=== PATIENT | female | born 2000 | race Two or more races ===

== ENCOUNTER 2022-03-04 19:05 | Emergency (ER) | payer SELFPAY ==
[~2022-03-04] VITALS: Ht 162.6 cm; Wt 57.0 kg
[2022-03-04] MEDS ORDERED: SODIUM CHLORIDE 0.9% 1,000 ML IV ONE (20:45)
[2022-03-04 21:09] LABS: CLARITY URINE CLOUDY (CLEAR); COLOR URINE YELLOW (YELLOW); KETONES URINE TRACE (NEGATIVE); LEUKOCYTE ESTERASE URINE 1+ (NEGATIVE); NITRITE URINE NEGATIVE (NEGATIVE); OCCULT BLOOD URINE NEGATIVE (NEGATIVE); PH URINE 6.5 (4.5-8.0); PROTEIN URINE 1+ (NEGATIVE); SPECIFIC GRAVITY URINE 1.026 (1.005-1.030)
[2022-03-04 21:19] LABS: *AMPHETAMINES SCREEN URINE NEGATIVE (NEGATIVE); *BARBITURATES SCREEN URINE NEGATIVE (NEGATIVE); *BENZODIAZEPINES SCREEN URINE NEGATIVE (NEGATIVE); *COCAINE SCREEN URINE NEGATIVE (NEGATIVE); METHADONE URINE SCREEN NEGATIVE (NEGATIVE); OPIATES URINE SCREEN NEGATIVE (NEGATIVE); PHENCYCLIDINE URINE SCREEN NEGATIVE (NEGATIVE)
[2022-03-04 21:23] LABS: CANNABINOID URINE SCREEN PRESUMTIVE POSITIVE (NEGATIVE)
[2022-03-04 21:26] LABS: HEMOGLOBIN. 12.5 g/dL (12.0-16.0); MEAN CORPUSCULAR HEMOGLOBIN 26.4 pg (28.0-32.0); MEAN CORPUSCULAR VOLUME 82.2 fL (81.0-99.0); PLATELET 306 x1000/uL (130-400); RED BLOOD CELL COUNT 4.74 mill/uL (4.2-5.4); RED CELL DISTRIBUTION WIDTH 15.7 % (11.6-14.6)
[2022-03-04 21:30] LABS: CHLORIDE 109 mEq/L (98-107)
[2022-03-04 21:37] LABS: HCG SCREEN NEGATIVE
[2022-03-04 21:47] LABS: ETHANOL BLOOD < 10 mg/dL
[2022-03-04 21:50] LABS: PLATELET ESTIMATE NORMAL
[2022-03-04] MEDS ORDERED: CEFTRIAXONE 1 G PREMIX 50 ML IV ONE (23:15)
[2022-03-05] MEDS ORDERED: CEFTRIAXONE 1 G PREMIX 50 ML IV NR (00:15)
[2022-03-05] MEDS ORDERED: LORAZEPAM 1MG TABLET PO ONE (05:00)
[2022-03-05] MEDS ORDERED: CEPHALEXIN 250MG CAPSULE PO NR (05:15)
[2022-03-05] MEDS ORDERED: CEPHALEXIN 250MG CAPSULE PO SCH (09:00)
[2022-03-05] MEDS: OLANZAPINE 5MG TABLET ODT PO SCH ×2 (11:00→17:00)
[2022-03-06] MEDS: OLANZAPINE 5MG TABLET ODT PO SCH (10:04)
[2022-03-06] MEDS ORDERED: TOPUD PO (12:27)
[2022-03-06] MEDS ORDERED: NITR100C PO (12:28)
[2022-03-06 13:01] VITALS: BP 110/72
== END 2022-03-06 13:02 | disposition home or self-care (01) ==
LOC: ER 19:05
DX: F22 Delusional disorders (principal); U07.1 COVID-19; N39.0 Urinary tract infection, site not specified; F12.10 Cannabis abuse, uncomplicated; R00.0 Tachycardia, unspecified; R45.1 Restlessness and agitation
CPT/HCPCS: 36415; 71045; 80053; 80305; 80307; 80320; 80329; 81003; 84443; 84703; 85025; 93005; 96361; 96365; 99285; C9803; J0696; J7030; U0003; U0005; G0480